=== PATIENT | male | born 1975 | race Caucasian/White ===

== ENCOUNTER 2020-05-06 14:59 | Emergency (ER) | payer MEDICAID, OTHER ==
[~2020-05-06] VITALS: Ht 190.5 cm; Wt 85.5 kg
--- NOTE | 2020-05-06 15:24 | NUR ---
PT AMBULATORY TO ROOM 1 W/ C/O WD TO R CHEST. PT STATES HE WAS SEWING HIS PANTS AND LEFT THE NEEDLE ON THE BED AND PT WENT TO RELAX AND LET HIMSELF FALL ON HIS BED WHEN THE NEEDLE WENT INTO HIS CHEST. HE STATES HE ATTEMPTED TO TAKE IT OUT W/ NAIL CLIPPERS AND THE NEEDLE BROKE. PT THINKS HE HAS A PIECE IN HIS CHEST. PT STATES HX ANXIETY AND STATES HE IS CURRENTLY NERVOUS. HR NOTED TO BE 152 IN TRIAGE MONITORS APPLIED IN ROOM HR 145. PER ERP DR. SEVILLA NO NEED FOR IVF/MEDS AT THIS TIME FOR HR. WILL CONTINUE TO MONITOR.
--- NOTE | 2020-05-06 16:21 | NUR ---
PT RESTING ON GURNEY. NADN. SZYMANSKI.
--- NOTE | 2020-05-06 16:40 | NUR ---
ERP DR. SEVILLA AWARE OF PT IMAGING RESULT.
[2020-05-06 17:20] VITALS: BP 133/97
--- NOTE | 2020-05-06 17:21 | NUR ---
PT RESTING ON GURNEY. NADN. HR REMAINS AT 132. ERP AWARE.
--- NOTE | 2020-05-06 17:58 | NUR ---
PT REFUSING TO BE ADMITTED TO HOSPITAL FOR OBSERVATION AND SERIAL XR'S. PT STATES "I DON'T WANT TO STAY IN THE HOSPITAL". PT EDUCATED ON IMPORTANCE FOR SERIAL XR'S NEEDLE IS IN LUNG AND CLOSE TO THE HEART AND CAN MIGRATE AND PUNCTURE HEART AND THAT COULD PUT PT'S LIFE AT RISK. PT CONTINUES TO STATE HE DOES NOT WANT TO STAY IN THE HOSPITAL. PT IS AOX4. PT STATES HE WILL BE BACK IN 6 HRS FOR REPEAT CXR. AMA SHEET SIGNED. Addendum: 05/06/20 at 1800 by BNICHOLS ALSO DISCUSSED PT'S HIGH HEART RATE AND NEED FOR MONITORING SECONDARY TO THE NEEDLE BEING CLOSE TO PT'S HEART.
== END 2020-05-06 18:01 | disposition home or self-care (01) ==
LOC: ED 16:56
DX: M79.5 Residual foreign body in soft tissue (principal); I51.7 Cardiomegaly; I25.2 Old myocardial infarction; W27.3XXA Contact with needle (sewing), initial encounter; Y93.39 Activity, other involving climbing, rappelling and jumping off; Y92.098 Other place in other non-institutional residence as the place of occurrence of the external cause; Y99.8 Other external cause status
CPT/HCPCS: 71046; 93005; 99283

== ENCOUNTER 2020-05-06 20:39 | Emergency (ER) | payer MEDICAID ==
[~2020-05-06] VITALS: Ht 190.5 cm; Wt 85.8 kg
--- NOTE | 2020-05-06 21:14 | NUR ---
PATIENT WAS SEEN HERE EARLIER TODAY FOR NEEDLE PUNCTURE TO CHEST, TRIED TO GET IT OUT AT HOME AND NEEDLE BROKE. PATIENT LEFT AMA BECAUSE HE DID NOT WANT TO BE ADMITTED FOR SERIAL CHEST XRAYS. PATIENT RETURNED FOR SINGLE REPEAT CXR.
--- NOTE | 2020-05-06 21:15 | NUR ---
ENVIRONMENTAL INTERN RESULTED, REVEALED SECOND NEEDLE INTO ABDOMEN Addendum: 05/06/20 at 2116 by ROBERTO CXR
[2020-05-06] MEDS ORDERED: SODIUM CHLORIDE FLUSH 10ML SYR IVF ONE (21:30)
--- NOTE | 2020-05-06 21:30 | NUR ---
PIV PLACED FOR CT
--- NOTE | 2020-05-06 21:50 | NUR ---
PATIENT BACK FROM CT
[2020-05-06 22:44] VITALS: BP 134/99
--- NOTE | 2020-05-06 22:44 | NUR ---
ALL RESULTS BACK, PATIENT UP FOR RECHECK. PATIENT RESTING ON GURNEY, MONITORING IN PLACE ,VSS, NADN, CALL LIGHT IN REACH
[2020-05-06] MEDS ORDERED: ACETAMINOPHEN 500 MG TABLET ONE (22:57)
[2020-05-06] MEDS ORDERED: CEPHALEXIN 500 MG CAPSULE ONE (22:57)
[2020-05-06] MEDS ORDERED: ACETAMINOPHEN 500 MG TABLET PO ONE (23:00)
[2020-05-06] MEDS ORDERED: CEPHALEXIN 500 MG CAPSULE PO ONE (23:00)
--- NOTE | 2020-05-06 23:05 | NUR ---
PATIENT MEDICATED PER EMAR
--- NOTE | 2020-05-06 23:08 | NUR ---
Patient given discharge instructions and they have confirmed that they understand the instructions. Patient ambulatory with steady gait.
[2020-05-06] MEDS ORDERED: OMNIPAQUE 350 MG/ML, 100ML BOTTLE ONE (23:31)
== END 2020-05-06 23:10 | disposition home or self-care (01) ==
LOC: ED 21:09
DX: S31.149A Puncture wound of abdominal wall with foreign body, unspecified quadrant without penetration into peritoneal cavity, initial encounter (principal); R07.89 Other chest pain; R10.9 Unspecified abdominal pain; X58.XXXA Exposure to other specified factors, initial encounter; Y93.89 Activity, other specified; Y92.89 Other specified places as the place of occurrence of the external cause; Y99.8 Other external cause status
CPT/HCPCS: 71046; 74177; 99285; Q9967

== ENCOUNTER 2020-05-18 15:31 | Emergency (ER) | payer BC, MEDICAID ==
[~2020-05-18] VITALS: Ht 190.5 cm; Wt 87.9 kg
[2020-05-18] MEDS ORDERED: SODIUM CHLORIDE FLUSH 10ML SYR IVF ONE (16:00)
--- NOTE | 2020-05-18 16:04 | NUR ---
RESIDENT INTERN: PT TO ROOM FROM TRIAGE
--- NOTE | 2020-05-18 16:17 | NUR ---
first contact with pt. pt c/o llq abd pain x a few days. pt stated"i have a sweing needle in my stomach." denies n/v/d. pt's aox4. resps even and unlabored. bp/spo2 monitors in place. clal light within reach.
[2020-05-18 16:24] LABS: BASOPHILS % (AUTO) 1 % (0-1); EOSINOPHILS % (AUTO) 3 % (1-7); LYMPHOCYTES % (AUTO) 33 % (22-44); MEAN CORPUSCULAR HEMOGLOBIN 28.5 pg (27.5-34.5); MEAN CORPUSCULAR HGB CONC 33.3 g/dL (33.2-36.2); MEAN PLATELET VOLUME 7.1 fL (7.4-10.4); MONOCYTES % (AUTO) 7 % (2-9); NEUTROPHILS % (AUTO) 57 % (42-75); PLATELET COUNT 259 x10^3/uL (130-400); RED BLOOD COUNT 4.96 x10^6/uL (4.38-5.82); RED CELL DISTRIBUTION WIDTH 13.2 % (9.4-14.8)
[2020-05-18 16:26] LABS: MD NO
[2020-05-18 16:37] LABS: ALANINE AMINOTRANSFERASE 54 U/L (12-78); ALBUMIN 3.6 g/dL (3.4-5.0); ANION GAP 6 mmol/L (5-15); CALCIUM 8.8 mg/dL (8.5-10.1); CHLORIDE 111 mmol/L (98-107); CREATININE 1.08 mg/dL (0.7-1.3)
[2020-05-18 16:39] LABS: ALKALINE PHOSPHATASE 86 U/L (45-117); BILIRUBIN,TOTAL 0.3 mg/dL (0.2-1.0); TOTAL PROTEIN 7.2 g/dL (6.4-8.2)
--- NOTE | 2020-05-18 17:09 | NUR ---
pt to xray at this time.
[2020-05-18 17:49] VITALS: BP 136/96
--- NOTE | 2020-05-18 18:05 | NUR ---
Patient given discharge instructions and they have confirmed that they understand the instructions. Patient ambulatory with steady gait.
== END 2020-05-18 18:06 | disposition home or self-care (01) ==
LOC: ED 16:27
DX: R10.12 Left upper quadrant pain (principal); F17.200 Nicotine dependence, unspecified, uncomplicated; Z18.89 Other specified retained foreign body fragments
CPT/HCPCS: 36415; 74018; 80053; 85025; 99284